=== PATIENT | male | born 1960 | race Caucasian/White ===

== ENCOUNTER → 2016-06-02 | Outpatient (CLI) | payer OTHER ==
--- NOTE | 2016-06-02 08:36 | DIAGNOSTIC IMAGING REPORT ---
LUMBAR SPINE MRI HISTORY: LOW BACK AND LEFT LEG PAIN TECHNIQUE: Multiplanar multisequence MRI of the lumbar spine was performed without the use of contrast. COMPARISON: None. FINDINGS: For the purpose of the report the L5-S1 disc space will be located on axial image 23 of 25. No fracture or subluxation. There are few subcentimeter T1 and T2 hyperintense lesions within the L1 and L3 vertebral bodies. The largest measures 9 mm at L1. These are consistent with hemangiomas. The conus terminates at the T12-L1 disc space. Mild edema both within and surrounding the left L4-L5 facets. Mild right and moderate left facet degenerative changes at L4-L5. Therefore, the left-sided edema favors long-standing degenerative change. Mild disc space narrowing at L4-L5. The remaining disc spaces are preserved. Partially imaged T2 hyperintense lesion within the right kidney on the wool classer views which measures 2.7 cm. This favors a cyst. There is also a 2.1 cm T2 hyperintense lesion within the left kidney which also favors a cyst. L1-L2: No significant central canal or neural foraminal narrowing. L2-L3: No significant central canal or neural foraminal narrowing. L3-L4: No significant central canal or neural foraminal narrowing. L4-L5: No disc herniations. Bilateral facet hypertrophy, left greater the right, without significant central canal or neural foraminal narrowing. L5-S1: No significant central canal or neural foraminal narrowing. IMPRESSION: 1. Mild disc space narrowing at L4-L5. 2. No disc herniations. No significant central canal or neural foraminal narrowing. 3. Mild right and moderate left facet degenerative changes at L4-L5. There is edema both within and surrounding the left L4-5 facet. This favors long-standing degenerative change. 4. No fracture or subluxation within the lumbar spine. Electronically signed by: George Dow M.D. 06/02/2016 8:34 AM Dictated Date/Time: 06/02/2016 8:27 AM
== END | disposition home or self-care (01) ==
PROVIDERS: ATTEND Orthopaedic Surgery
DX: M54.5 Low back pain (principal); M79.605 Pain in left leg